=== PATIENT | male | born 1990 | race Caucasian/White ===

== ENCOUNTER 2021-05-22 15:11 | Emergency (ER) | payer OTHER ==
[~2021-05-22] VITALS: Ht 170.2 cm; Wt 90.0 kg
[2021-05-22 15:17] VITALS: BP 120/80
== END 2021-05-22 18:28 | disposition home or self-care (01) ==
LOC: ER 15:11
DX: G44.309 Post-traumatic headache, unspecified, not intractable (principal); Y08.89XA Assault by other specified means, initial encounter; Y93.9 Activity, unspecified; Y92.9 Unspecified place or not applicable
CPT/HCPCS: 70486; 73030; 99285